=== PATIENT | female | born 1995 | race Caucasian/White ===

== ENCOUNTER 2017-01-05 10:36 | Inpatient (IN) ==
[2017-01-05] MEDS ORDERED: NS 1,000 ML ONE (10:56)
[2017-01-05] MEDS ORDERED: NS 1,000 ML IV ONE (11:00)
[2017-01-05 11:18] LABS: MANUAL DIFF NEEDED? NO
[2017-01-05 11:27] LABS: BASO% 0.2 % (0.0-0.8); EOS% 2.2 % (0.0-10.0); HEMATOCRIT 42.5 % (37.0-47.0); HEMOGLOBIN 14.1 g/dL (12.0-16.0); IMM GRAN# 0.02 X1000 (0.0-0.04); IMM GRAN% 0.2 % (0.0-0.5); LYMPH# 2.75 X1000 (1.2-3.4); LYMPH% 29.6 % (20.5-51.1); MCH 28.7 PG (27-31); MCHC 33.2 g/dL (33-37); MCV 86.4 FL (81-99); MONO# 0.79 X1000 (0.11-0.59); MONO% 8.5 % (1.7-9.3); MPV 11.3 FL (7.4-10.4); NEUT% 59.3 % (42.2-75.2); PLT 275 X1000 (130-400); RBC 4.92 XMIL (4.2-5.4)
[2017-01-05 11:32] LABS: BE 0.6 mmoll (-3.0-3.0); BLOOD TYPE ARTERIAL; METHB 1.1 % (0.0-1.5); O2(CT) 16.2 mL/dL (15.0-23.0); PCO2(98.6) 44 mmHg (35-45); PO2(98.6) 92 mmHg (60-100); SAMPLE BLOOD; THB 12.2 g/dL (11.5-17.4); pH(98.6) 7.38 (7.35-7.45)
[2017-01-05 11:34] LABS: ALLEN TEST YES; DRAW SITE L RADIAL; MODALITY ROOM AIR
[2017-01-05 11:37] LABS: BILIRUBIN URINE NEGATIVE (NEGATIVE); BLOOD URINE NEGATIVE (NEGATIVE); CLARITY CLEAR (CLEAR); COLOR YELLOW; GLUCOSE URINE NEGATIVE (NEGATIVE); LEUKOCYTES URINE 1+ (NEGATIVE); NITRITE URINE NEGATIVE (NEGATIVE); PROTEIN URINE NEGATIVE (NEGATIVE); UROBILINOGEN URINE NORMAL
[2017-01-05 11:38] LABS: UR AMPHETAMINES QUAL NONE DETECTED (NONE DETECT); UR BARBITUATES QUAL NONE DETECTED (NONE DETECT); UR BENZODIAZEPIN QUAL PRESUMPTIVE POSITIVE (NONE DETECT); UR CANNABINOIDS QUAL PRESUMPTIVE POSITIVE (NONE DETECT); UR COCAINE QUAL PRESUMPTIVE POSITIVE (NONE DETECT); UR MDMA QUAL NONE DETECTED (NONE DETECT); UR METHADONE QUAL NONE DETECTED (NONE DETECT); UR METHAMPHETAMINE QUAL PRESUMPTIVE POSITIVE (NONE DETECT); UR OPIATES QUAL NONE DETECTED (NONE DETECT); UR OXYCODONE QUAL NONE DETECTED (NONE DETECT); UR PCP QUAL NONE DETECTED (NONE DETECT); UR TCA QUAL PRESUMPTIVE POSITIVE (NONE DETECT)
[2017-01-05 11:41] LABS: URINE SOURCE CATH
[2017-01-05 11:42] LABS: URINE CULTURE PL NEEDED? YES; URINE EPITHELIAL CELLS <10 /HPF (<10)
[2017-01-05 11:53] LABS: ACETAMINOPHEN 20.2 ug/mL (10-30); AGAP 11; ALBUMIN 4.4 g/dL (3.5-5.0); ALKALINE PHOSPHATASE 85 U/L (32-104); BUN 6 mg/dL (8-22); CALCIUM 9.4 mg/dL (8.8-10.2); CHLORIDE 103 mmol/L (98-107); CK PROFILE 98 U/L (24-173); COSMO 273; GOT 14 U/L (10-30); GPT 15 U/L (10-36); LIPASE 24 U/L (13-60); POTASSIUM 3.9 mmol/L (3.5-5.1); SODIUM 138 mmol/L (136-145); TCO2 24 mmol/L (25-35); TOTAL PROTEIN 8.1 g/dL (6.3-8.3)
[2017-01-05 12:00] LABS: INR 0.83 (0.86-1.15); PROTIME 12.1 Seconds (12.1-15.5)
[2017-01-05 12:01] LABS: PTT PL 31.3 Seconds (22.6-43.9)
[2017-01-05] MEDS ORDERED: ROCEPHIN 1 GM in NS 50 ML IV ONE (12:09)
[2017-01-05] MEDS ORDERED: NS 50 ML ONE (12:56)
[2017-01-05] MEDS ORDERED: ZOFRAN IV PRN (18:06)
[2017-01-05] MEDS ORDERED: NS 1,000 ML IV SCH (18:06)
[2017-01-05] MEDS ORDERED: TYLENOL PO PRN (18:06)
[2017-01-05] MEDS ORDERED: SODIUM CHLORIDE 0.9% INJ SCH (18:15)
[2017-01-05] MEDS: PROTONIX IV SCH (19:27)
[2017-01-06] MEDS ORDERED: ZOFRAN IV PRN (08:30)
[2017-01-06] MEDS ORDERED: TYLENOL PO PRN (08:30)
[2017-01-06] MEDS ORDERED: ROCEPHIN 1 GM in NS 50 ML IV SCH (13:00)
[2017-01-06] MEDS: PROTONIX IV SCH (18:27)
[2017-01-06] MEDS ORDERED: NAPROSYN PO SCH (21:00)
[2017-01-07] MEDS ORDERED: SEPTRA DS PO SCH (09:00)
[2017-01-07 11:34] VITALS: BP 95/50
== END 2017-01-07 11:10 | disposition left against medical advice (07) ==
LOC: P.ED 10:36 → P.ICU 13:34
PROVIDERS: ATTEND Family Medicine